=== PATIENT | female | born 1970 | race Two or more races ===

== ENCOUNTER 2018-10-27 15:02 | Day surgery (SDC) | payer OTHER ==
[~2018-10-27 15:02] MED LIST: CEFAZOLIN 2 GM/50 ML (PMX) 50 ML IVPB
[2018-10-27 16:09] LABS: ADD MAN DIFF? NO
[2018-10-27 16:18] LABS: BASOPHIL # 0.1 10^3/ul (0.0-0.1); BASOPHILS % 0.8 % (0.0-2.0); EOSINOPHILS # 0.5 10^3/ul (0.0-0.5); EOSINOPHILS % 7.4 % (0.0-7.0); HEMATOCRIT 35.6 % (37.0-47.0); HEMOGLOBIN 11.3 g/dl (12.0-16.0); LYMPHOCYTES # 1.6 10^3/ul (0.8-2.9); LYMPHOCYTES % 22.5 % (15.0-51.0); MEAN CORPUSCULAR HEMOGLOBIN 29.3 pg (29.0-33.0); MEAN CORPUSCULAR HGB CONC 31.7 g/dl (32.0-37.0); MEAN CORPUSCULAR VOLUME 92.2 fl (82.0-101.0); MEAN PLATELET VOLUME 12.1 fl (7.4-10.4); MONOCYTE # 0.6 10^3/ul (0.3-0.9); MONOCYTES % 7.8 % (0.0-11.0); NEUTROPHIL # 4.5 10^3/ul (1.6-7.5); NEUTROPHILS % 61.1 % (39.0-77.0); PLATELET COUNT 173 10^3/UL (140-415); RED BLOOD COUNT 3.86 10^6/ul (4.20-5.40); RED CELL DISTRIBUTION WIDTH 12.7 % (11.5-14.5)
[2018-10-27 16:18] LABS: WHITE BLOOD COUNT 7.3 10^3/ul (4.8-10.8)
[2018-10-27] MEDS ORDERED: LACTATED RINGER'S 1,000 ML IV (16:30)
[2018-10-27 16:35] LABS: ALANINE AMINOTRANSFERASE 17 IU/L (13-69); ALBUMIN 3.5 g/dl (3.3-4.9); ALBUMIN/GLOBULIN RATIO 1.02; ALKALINE PHOSPHATASE 68 IU/L (42-121); ANION GAP 7 (5-13); ASPARTATE AMINO TRANSFERASE 21 IU/L (15-46); BILIRUBIN,INDIRECT 0.5 mg/dl (0-1.1); BILIRUBIN,TOTAL 0.5 mg/dl (0.2-1.3); BLOOD UREA NITROGEN 16 mg/dl (7-20); CALCIUM 8.9 mg/dl (8.4-10.2); CARBON DIOXIDE 27 mmol/L (21-31); CHLORIDE 108 mmol/L (97-110); CREATININE 0.57 mg/dl (0.44-1.00); Estimated GFR > 60 mL/min (>60); GLUCOSE 89 mg/dl (70-220); SODIUM 142 mmol/L (135-144); TOTAL PROTEIN 6.9 g/dl (6.1-8.1)
[2018-10-27 16:40] LABS: INR 0.92; PROTIME 12.5 Sec (11.9-14.9)
[2018-10-27 16:41] LABS: PARTIAL THROMBOPLASTIN TIME 29.8 Sec (23.0-35.0)
[2018-10-27 16:42] LABS: ADD UMIC YES; UR ASCORBIC ACID NEGATIVE (NEGATIVE); UR BILIRUBIN (Dip) NEGATIVE (NEGATIVE); UR BLOOD (Dip) NEGATIVE (NEGATIVE); UR CLARITY CLOUDY (CLEAR); UR COLOR YELLOW (YELLOW); UR GLUCOSE (Dip) NEGATIVE (NEGATIVE); UR KETONES (Dip) NEGATIVE (NEGATIVE); UR LEUKOCYTE ESTERASE (Dip) NEGATIVE Leu/ul (NEGATIVE); UR MUCUS FEW /HPF (NONE SEEN); UR NITRITE (Dip) NEGATIVE (NEGATIVE); UR RBC 2 /HPF (0-5); UR SPECIFIC GRAVITY (Dip) 1.024 (1.003-1.030); UR SQUAMOUS EPITHELIAL CELL FEW /HPF (FEW); UR TOTAL PROTEIN (Dip) NEGATIVE (NEGATIVE); UR UROBILINOGEN (Dip) NEGATIVE (NEGATIVE); UR WBC 2 /HPF (0-5)
[2018-10-27] MEDS ORDERED: POLYMYXIN/BACITRACIN 1L IRRIG (17:18)
[2018-10-27] MEDS ORDERED: CEFAZOLIN 1 GM INJ (18:21)
[2018-10-27] MEDS ORDERED: FENTAnyl 50 MCG/ML VIAL ×2 (18:21→19:02)
[2018-10-27] MEDS ORDERED: PROPOFOL 20 ML (18:21)
[2018-10-27] MEDS ORDERED: FENTAnyl 50 MCG/ML VIAL IV (18:30)
[2018-10-27] MEDS: LIDOCAINE 1% (MPF) 30 ML INJ (18:42)
[2018-10-27] MEDS: FENTAnyl 50 MCG/ML VIAL IV ×3 (19:07→19:43)
== END 2018-10-27 20:00 | disposition home or self-care (01) ==
LOC: SDS 15:02
DX: I83.028 Varicose veins of left lower extremity with ulcer other part of lower leg (principal); L97.829 Non-pressure chronic ulcer of other part of left lower leg with unspecified severity; J45.909 Unspecified asthma, uncomplicated; E66.01 Morbid (severe) obesity due to excess calories; Z68.43 Body mass index [BMI] 50.0-59.9, adult; Z86.718 Personal history of other venous thrombosis and embolism
CPT/HCPCS: 11043; 71045; 80053; 81001; 85025; 85610; 85730; 93005

== ENCOUNTER 2018-11-18 14:58 | Day surgery (SDC) | payer OTHER ==
[2018-11-18] MEDS: LACTATED RINGER'S 1,000 ML IV (16:49)
[2018-11-18] MEDS ORDERED: FENTAnyl 50 MCG/ML VIAL (18:48)
[2018-11-18] MEDS ORDERED: MIDAZOLAM 1 MG/ML 2 ML INJ (18:48)
[2018-11-18] MEDS ORDERED: KETOROLAC 30 MG INJ (18:50)
[2018-11-18] MEDS ORDERED: CEFAZOLIN 1 GM INJ (18:50)
[2018-11-18] MEDS ORDERED: HYDROmorphONE 1 MG/5 ML IV SYRINGE IV ×2 (19:00)
== END 2018-11-18 20:18 | disposition home or self-care (01) ==
LOC: SUR 14:58 → SDS 14:58 → SUR 20:18
DX: L97.825 Non-pressure chronic ulcer of other part of left lower leg with muscle involvement without evidence of necrosis (principal); I87.8 Other specified disorders of veins; R60.0 Localized edema
CPT/HCPCS: 11043; 84703

== ENCOUNTER 2018-12-06 15:32 | Day surgery (SDC) | payer OTHER ==
[2018-12-06] MEDS ORDERED: CEFAZOLIN 2 GM/50 ML (PMX) 50 ML IVPB (16:00)
[2018-12-06] MEDS: LACTATED RINGER'S 1,000 ML IV (16:42)
[2018-12-06 17:09] LABS: ADD MAN DIFF? NO
[2018-12-06 17:13] LABS: BASOPHILS % 0.4 % (0.0-2.0); EOSINOPHILS # 0.6 10^3/ul (0.0-0.5); EOSINOPHILS % 8.5 % (0.0-7.0); HEMATOCRIT 38.5 % (37.0-47.0); HEMOGLOBIN 12.1 g/dl (12.0-16.0); LYMPHOCYTES # 1.6 10^3/ul (0.8-2.9); LYMPHOCYTES % 22.7 % (15.0-51.0); MEAN CORPUSCULAR HEMOGLOBIN 28.9 pg (29.0-33.0); MEAN CORPUSCULAR HGB CONC 31.4 g/dl (32.0-37.0); MEAN CORPUSCULAR VOLUME 91.9 fl (82.0-101.0); MEAN PLATELET VOLUME 12.4 fl (7.4-10.4); MONOCYTE # 0.6 10^3/ul (0.3-0.9); MONOCYTES % 8.3 % (0.0-11.0); NEUTROPHIL # 4.2 10^3/ul (1.6-7.5); NEUTROPHILS % 59.7 % (39.0-77.0); PLATELET COUNT 169 10^3/UL (140-415); RED BLOOD COUNT 4.19 10^6/ul (4.20-5.40); RED CELL DISTRIBUTION WIDTH 12.7 % (11.5-14.5)
[2018-12-06 17:24] LABS: ADD UMIC YES; UR ASCORBIC ACID NEGATIVE (NEGATIVE); UR BILIRUBIN (Dip) NEGATIVE (NEGATIVE); UR BLOOD (Dip) NEGATIVE (NEGATIVE); UR CLARITY SLIGHTLY CLOUDY (CLEAR); UR COLOR YELLOW (YELLOW); UR GLUCOSE (Dip) NEGATIVE (NEGATIVE); UR KETONES (Dip) NEGATIVE (NEGATIVE); UR LEUKOCYTE ESTERASE (Dip) NEGATIVE Leu/ul (NEGATIVE); UR NITRITE (Dip) POSITIVE (NEGATIVE); UR RBC 0 /HPF (0-5); UR SPECIFIC GRAVITY (Dip) 1.023 (1.003-1.030); UR SQUAMOUS EPITHELIAL CELL MODERATE /HPF (FEW); UR TOTAL PROTEIN (Dip) NEGATIVE (NEGATIVE); UR UROBILINOGEN (Dip) NEGATIVE (NEGATIVE); UR WBC 1 /HPF (0-5)
[2018-12-06 17:25] LABS: UR BACTERIA MODERATE /HPF (NONE SEEN); UR MUCUS MANY /HPF (NONE SEEN)
[2018-12-06 17:31] LABS: ANION GAP 5 (5-13); BLOOD UREA NITROGEN 15 mg/dl (7-20); CALCIUM 9.1 mg/dl (8.4-10.2); CARBON DIOXIDE 27 mmol/L (21-31); CHLORIDE 105 mmol/L (97-110); CREATININE 0.61 mg/dl (0.44-1.00); Estimated GFR > 60 mL/min (>60); GLUCOSE 89 mg/dl (70-220); POTASSIUM 4.5 mmol/L (3.5-5.1); SODIUM 137 mmol/L (135-144)
[2018-12-06 17:32] LABS: INR 0.92; PROTIME 12.5 Sec (11.9-14.9)
[2018-12-06 17:33] LABS: PARTIAL THROMBOPLASTIN TIME 31.8 Sec (23.0-35.0)
[2018-12-06] MEDS ORDERED: LIDOCAINE 1% (MPF) 30 ML INJ (17:49)
[2018-12-06] MEDS ORDERED: OXYCODONE/ACETAMINOPHEN (5/325) TAB PO ×2 (18:30)
[2018-12-06] MEDS ORDERED: HYDROmorphONE 1 MG/5 ML IV SYRINGE IV ×3 (18:30)
[2018-12-06] MEDS ORDERED: FENTAnyl 50 MCG/ML VIAL IV ×2 (18:30)
[2018-12-06] MEDS ORDERED: MEPERIDINE 25 MG INJ IV (18:30)
[2018-12-06] MEDS ORDERED: DIPHENHYDRAMINE 50 MG INJ IV (18:30)
[2018-12-06] MEDS ORDERED: KETOROLAC 30 MG INJ IV (18:30)
[2018-12-06] MEDS ORDERED: MIDAZOLAM 1 MG/ML 2 ML INJ (18:32)
[2018-12-06] MEDS ORDERED: FENTAnyl 50 MCG/ML VIAL (18:32)
[2018-12-06] MEDS ORDERED: CEFAZOLIN 1 GM INJ (18:34)
[2018-12-06] MEDS: POLYMYXIN/BACITRACIN 1L IRRIG (18:51)
[2018-12-06] MEDS ORDERED: KETOROLAC 30 MG INJ (18:52)
[2018-12-06] MEDS: ONDANSETRON 4 MG INJ IV (19:36)
[2018-12-06] MEDS: FENTAnyl 50 MCG/ML VIAL IV (19:51)
== END 2018-12-06 20:30 | disposition home or self-care (01) ==
LOC: SDS 15:32
DX: I83.028 Varicose veins of left lower extremity with ulcer other part of lower leg (principal); L97.829 Non-pressure chronic ulcer of other part of left lower leg with unspecified severity; J45.909 Unspecified asthma, uncomplicated; E66.01 Morbid (severe) obesity due to excess calories; Z68.43 Body mass index [BMI] 50.0-59.9, adult
CPT/HCPCS: 11043; 80048; 81001; 85025; 85610; 85730

== ENCOUNTER 2019-01-03 15:55 | Day surgery (SDC) | payer OTHER ==
[2019-01-03] MEDS ORDERED: CEFAZOLIN 2 GM/50 ML (PMX) 50 ML IVPB (16:00)
[2019-01-03] MEDS ORDERED: LACTATED RINGER'S 1,000 ML IV (17:30)
[2019-01-03] MEDS ORDERED: EPHEDrine 25 MG/5 ML SYG IV (18:00)
[2019-01-03] MEDS ORDERED: hydrALAzine 20 MG INJ IV (18:00)
[2019-01-03] MEDS ORDERED: OXYCODONE/ACETAMINOPHEN (5/325) TAB PO ×2 (18:00)
[2019-01-03] MEDS ORDERED: METOCLOPRAMIDE 10 MG INJ IV (18:00)
[2019-01-03] MEDS ORDERED: ALBUTEROL 0.083% (NEB) 2.5 MG/3 ML AMP HHN (18:00)
[2019-01-03] MEDS ORDERED: FENTAnyl 50 MCG/ML VIAL ×2 (18:00→18:13)
[2019-01-03] MEDS ORDERED: FENTAnyl 50 MCG/ML VIAL IV ×2 (18:00)
[2019-01-03] MEDS ORDERED: ONDANSETRON 4 MG INJ IV (18:00)
[2019-01-03] MEDS ORDERED: MIDAZOLAM 1 MG/ML 2 ML INJ (18:00)
[2019-01-03] MEDS ORDERED: HYDROmorphONE 1 MG/5 ML IV SYRINGE IV ×3 (18:00)
[2019-01-03] MEDS ORDERED: LABETALOL HCL 20MG INJ IV (18:00)
[2019-01-03] MEDS ORDERED: CEFAZOLIN 1 GM INJ (18:02)
[2019-01-03] MEDS ORDERED: METOCLOPRAMIDE 10 MG INJ (18:04)
[2019-01-03] MEDS ORDERED: ONDANSETRON 4 MG INJ (18:04)
[2019-01-03] MEDS: LIDOCAINE 1% (MPF) 30 ML INJ (18:12)
== END 2019-01-03 19:28 | disposition home or self-care (01) ==
LOC: SDS 15:55
DX: I83.028 Varicose veins of left lower extremity with ulcer other part of lower leg (principal); L97.829 Non-pressure chronic ulcer of other part of left lower leg with unspecified severity; J45.909 Unspecified asthma, uncomplicated
CPT/HCPCS: 11043; 71045; 84703